=== PATIENT | male | born 1975 | race Caucasian/White ===

== ENCOUNTER → 2023-07-17 | Outpatient (CLI) | payer OTHER ==
--- NOTE | 2023-07-17 10:39 | CT ---
EXAMINATION TYPE: CT abdomen pelvis w con DATE OF EXAM: 07/17/2023 COMPARISON: None HISTORY: left abd mass CT DLP: 808.9 mGycm Automated exposure control for dose reduction was used. CONTRAST: CT scan of the abdomen pelvis is performed with IV Contrast, patient injected with 100 mL of Isovue 3 00. FINDINGS- LUNG BASES- groundglass 5 mm nodule right upper lobe image 1 likely post inflammatory. The heart is enlarged. Trace of gynecomastia. Trace of pericardial fluid. LIVER/GB- liver slightly reduced in attenuation which can be associated with mild hepatic steatosis . Gallbladder distended but no gallstones or CT evidence of cholecystitis. PANCREAS- No gross abnormality is seen. SPLEEN- there is a small accessory splenule. ADRENALS- No gross abnormality is seen. KIDNEYS/BLADDER- no hydronephrosis nephrolithiasis or renal mass. BOWEL- nonspecific no evidence of obstruction. Appendix normal. Portions of the bowel are limited in evaluation due to incomplete distention. LYMPH NODES- No greater than 1cm abdominal or pelvic lymph nodes are appreciated. OSSEOUS STRUCTURES- No significant abnormality is seen. OTHER- small fat-containing periumbilical hernia. Bladder demonstrates mild wall thickening correlat e for chronic cystitis. Small fat-containing inguinal hernia and tiny. Umbilical fat-containing herni a. IMPRESSION- 1. No evidence of intra-abdominal mass. 2. Small fat-containing bilateral inguinal and periumbilical hernia. 3. Correlate for mild cystitis.
== END | disposition home or self-care (01) ==
LOC: RADCTMAIN 07:10
PROVIDERS: ATTEND Family Medicine
DX: K42.0 Umbilical hernia with obstruction, without gangrene (principal); K40.00 Bilateral inguinal hernia, with obstruction, without gangrene, not specified as recurrent
CPT/HCPCS: 74177; Q9967